=== PATIENT | female | born 1945 | race Caucasian/White ===

== ENCOUNTER 2017-04-25 13:47 | Emergency (ER) | payer MEDICARE, OTHER ==
[~2017-04-25] VITALS: Ht 149.9 cm; Wt 71.4 kg
[2017-04-25 13:58] VITALS: BP 150/89; PULSE 86; RESP 16; O2SAT 97
--- NOTE | 2017-04-25 14:16 | ED.REPORT ---
HPI-Back Pain 40 and Over Date of Service Apr 25, 2017 ED Provider: Darrian Spicer MD Pt is a 71 year old female with a history of diabetes who presents to the ED with concerns for back pain that started several days ago while she was moving. She reports that the pain started in her leg and then traveled up to her lower back. Pt states that she went to her chiropractor, who was unable to tell what the problem was based on his physical exam, so they took a series of spinal x- rays. She reports that she was told that there was a decreased in the cartilage in between several of her vertebrae. She reports that she has been having continued pain, locazing in her upper buttocks all the way down to her left knee. She denies any trauma, falls, numbness, weakness or tingling in her lower extremities or any other symptoms. Nursing Notes Stated Complaint: BACK PAIN Chief Complaint: Back Pain or Injury Nursing Notes Reviewed: Yes Allergies: Coded Allergies: acetaminophen (Verified Allergy, Mild, hallucinate, 04/25/17) hydrocodone (Verified Allergy, Mild, hallucinate, 04/25/17) Scheduled PRN Cyclobenzaprine (Cyclobenzaprine) 5 Mg Tablet 5 MG PO HS PRN PRN Spasm Ibuprofen (Ibuprofen) 800 Mg Tablet 800 MG PO TID PRN PRN For Pain General Time Seen by MD: 14:08 Chief Complaint Back pain Hx Obtained From: Patient Arrived By: Walk-in Sudden in Onset?: Yes Onset Occurred: 3 days ago Symptom Duration: Since onset Location: : Generalized Quality: Painful Severity: Current: Moderate Severity: Maximum: Moderate Similar Sx Previous: Yes Past Medical History Past Medical History Reports: Diabetes mellitus Review of Systems Constitutional: Denies: Chills, Fever, Malaise, Weakness - generalized Respiratory: Denies: Non-productive cough, Wheezing Cardiovascular: Denies: Syncope GI: Denies: Abdominal pain, Diarrhea, Nausea, Vomiting Female: Denies: Dysuria, Flank pain, Urinary urgency Musculoskeletal: Reports: Back pain, Denies: Extremity pain, Joint pain, Neck pain Neurologic: Denies: Change LOC, Dizziness, Headache, Syncope Complete sys rev & neg: except as marked. Physical Exam Initial Vital Signs Vital Signs (First) Date Time Temp Pulse Resp B/P Pulse Ox O2 Delivery O2 Flow Rate FiO2 04/25/17 13:58 36.4 86 16 150/89 97 Room Air Initial VS: Reviewed Head / Eyes: Atraumatic, Normocephalic, PERRL ENT: Mucous membranes moist, Conjunctiva normal, No scleral icterus Extremities: Vascular intact, Neuro intact, No swelling, No tenderness Skin: Warm, Dry, No cyanosis General/Constitutional: Awake, Alert, Well appearing, Well developed Respiratory / Chest: Atraumatic, Breath sounds NL, Breath sounds = bilat, No respiratory distress Cardiovascular: Heart rate NL, Regular rhythm, Heart sounds NL, No gallop, No murmurs, No rubs Abdomen: Atraumatic, Soft, Non-tender Back: Atraumatic, Inspection NL Generalized pain Neurologic: Oriented X3, Speech NL, No motor deficits, No sensory deficits, CN II - XII intact Interpretation & Diagnostics Lab Results Interpretation Test 04/25/17 14:00 04/25/17 14:48 Hold Urine Received (Received) Urine Color Yellow (YELLOW) Urine Appearance Clear (CLEAR,HAZY) Urine pH 5.5 (5.0-8.0) Urine Specific [place] 1.020 (1.003-1.035) Urine Protein 100mg/dL (NEG,TRACE) Urine Glucose (UA) 1000mg/dL (NEGATIVE) Urine Ketones Negativemg/dL (NEGATIVE) Urine Occult Blood Negative (NEGATIVE) Urine Nitrite Negative (NEGATIVE) Urine Bilirubin Negative (NEGATIVE) Urine Urobilinogen Normalmg/dL (NORMAL) Urine Leukocyte Esterase Negative (NEGATIVE) Urine RBC 0-2/hpf (0-2) Urine WBC 0-5/hpf (0-5) Urine Epithelial Cells Few/hpf (NONE-MOD) Urine Crystals None seen (NONE SEEN) Urine Bacteria Few/hpf (NONE-FEW) Urine Hyaline Casts None/lpf (NONE) Urine Granular Casts None seen (NONE SEEN) Urine Waxy Casts None seen (NONE SEEN) Urine Red Blood Cell Casts None seen (NONE SEEN) Urine White Blood Cell Casts None seen (NONE SEEN) Urine Mucus None seen (None Seen) Urine Trichomonas None seen (NONE SEEN) Urine Yeast None (NONE SEEN) Urinalysis Comment None Urine Culture Reflexed Not indicated Re-Eval/Medical Decision Med Decision/Clinical Course 71-year-old female with left lower back pain radiating to left buttocks for several weeks. Straight leg raise negative. No neurological deficits. No trauma. No red flag symptoms, incontinence, saddle anesthesia, gait disturbances. Urine is negative for infection. Patient's pain resolved with Toradol. Possibly musculoskeletal. Did not believe she needs an emergent MRI. Patient will be discharged home with plans to follow up with primary doctor in 1-2 days for reevaluation. Return precautions given if any red flag symptoms, fevers, nausea vomiting, any other new or worsening symptoms. Source of Hx: Old records Re-Evaluation/Progress : Time of Eval: 14:43 Re-Evaluation/Progress Note: Pt is rechecked and informed of her diagnosis adn the plan to discharge her at this time. She understands and agrees, all questions are addressed. Counseled Regarding: Diagnosis, Need for follow-up, When/why to return to ED Discharge & Departure Impression: Primary Impression: Back pain Disposition: Home Discharge Condition All VS Reviewed: Yes Condition: Stable Patient Instructions: Back Pain (GEN) Additional Instructions: Follow up with your primary care provider for a referral to possibly obtain an MRI as well as to physical therapy. I suggest you take ibuprofen for the pain. For break through pain, take the muscle relaxer (Flexeril). This may cause drowsiness, so do not drive or drink alcohol while on this medication. Refrain from any heavy lifting, but I suggest gentle stretching as well as alternating ice and heat. Return to the emergency department with any worsening or concerning symptoms. Referrals: [facility] Scribe Attestation Portions of this note were transcribed by Alicia De Jesus. I, Dr. Spicer personally performed the history, physical exam and medical decision-making; I reviewed and confirmed the accuracy of the information in the transcribed note. Signed by: Araseli Arroyo, 04/25/2017 [id number] copies to: Ema Sanchez Ben M MD Apr 25, 2017 14:16 MASSIMO DE JESUS Apr 25, 2017 14:25
[2017-04-25] MEDS ORDERED: CYCL5TAB PO (14:35)
[2017-04-25] MEDS ORDERED: IBUP800T28 PO (14:35)
[2017-04-25 14:59] LABS: APPEARANCE,URINE CLEAR (CLEAR,HAZY); COLOR,URINE YELLOW (YELLOW); OCCULT BLOOD,URINE NEGATIVE (NEGATIVE); PH,URINE 5.5 (5.0-8.0); UROBILINOGEN,URINE NORMAL (NORMAL)
[2017-04-25 15:52] VITALS: BP 171/96; PULSE 88; RESP 12; O2SAT 97
== END 2017-04-25 15:40 | disposition home or self-care (01) ==
LOC: SED 13:47
DX: M54.5 Low back pain (principal); E11.9 Type 2 diabetes mellitus without complications; Z88.6 Allergy status to analgesic agent; Z88.5 Allergy status to narcotic agent
CPT/HCPCS: 81000; 96372; 99284; J1885